=== PATIENT | female | born 1965 | race Caucasian/White ===

== ENCOUNTER 2018-12-30 21:52 | Emergency (ER) | payer MEDICAID, OTHER ==
[~2018-12-30] VITALS: Ht 167.6 cm; Wt 70.3 kg
[2018-12-30 22:05] VITALS: BP 120/82
[2018-12-31] MEDS ORDERED: IBUPROFEN 800 MG TAB PO ONE (05:15)
== END 2018-12-31 05:24 | disposition home or self-care (01) ==
LOC: ER 21:58
DX: M79.651 Pain in right thigh (principal); R10.30 Lower abdominal pain, unspecified; M79.18 Myalgia, other site; Z88.0 Allergy status to penicillin; Z88.1 Allergy status to other antibiotic agents